=== PATIENT | female | born 1960 | race Caucasian/White ===

== ENCOUNTER 2018-09-03 17:05 | Emergency (ER) | payer OTHER ==
[~2018-09-03] VITALS: Ht 167.6 cm; Wt 92.5 kg
[2018-09-03 17:23] VITALS: BP 131/105; Ht 167.6 cm; Wt 92.5 kg
== END 2018-09-03 18:52 | disposition home or self-care (01) ==
LOC: ED 17:05
DX: S52.591A Other fractures of lower end of right radius, initial encounter for closed fracture (principal); M25.521 Pain in right elbow; I10 Essential (primary) hypertension; W22.8XXA Striking against or struck by other objects, initial encounter; Y93.89 Activity, other specified; Y92.89 Other specified places as the place of occurrence of the external cause; Y99.8 Other external cause status
CPT/HCPCS: J1885; Q0092